=== PATIENT | female | born 1965 | race American Indian/Alaskan Native ===

== ENCOUNTER 2016-06-06 09:27 | Outpatient (CLI) | payer BC ==
--- NOTE | 2016-06-06 10:35 | Ultrasound Report ---
RIGHT DIGITAL DIAGNOSTIC MAMMOGRAM : 06/06/16 09:27:00 CLINICAL: Recalled for asymmetry. COMPARISON:05/02/16 screening FINDINGS: Spot compression MLO and CC views were performed and demonstrated persistent upper-outer focal asymmetry. Ultrasound of the right breast was performed and demonstrated a cluster of cysts at 10 o'clock 12 cm from the nipple measuring 6 x 3 x 5 mm. It correlates with the mammographic density. IMPRESSION: Benign cysts right breast. BI-RADS CATEGORY: 2 - - Benign RECOMMENDATION: Routine mammographic screening in one year. ACR BI-RADS MAMMOGRAPHIC CODES: 0 = Needs additional imaging evaluation; 1 = Negative; 2 = Benign; 3 = Probably benign; 4 = Suspicious; 5 = Malignant; 6 = Known biopsy-proven malignancy COMMENT: 1. Dense breast tissue, i.e., adenosis, fibrocystic changes, etc., may obscure an underlying neoplasm. 2. Approximately 10% of cancers are not detected with mammography. 3. A negative mammography report should not delay biopsy if a clinically suspicious mass is present. COMMENT: Patient follow-up letters are generated via our [employer] application.
== END 2016-06-06 09:28 | disposition home or self-care (01) ==
LOC: SPVWC 09:27
PROVIDERS: ATTEND Internal Medicine
DX: N60.01 Solitary cyst of right breast (principal); R92.8 Other abnormal and inconclusive findings on diagnostic imaging of breast
CPT/HCPCS: 76642; G0206

== ENCOUNTER 2016-10-09 08:40 | Emergency (ER) | payer BC, OTHER ==
[2016-10-09 09:09] VITALS: BP 126/82
[2016-10-09] MEDS ORDERED: MOTRIN PO ONE (09:20)
[2016-10-09] MEDS ORDERED: XYLOCAINE 1% 20 mL INFILTRATI ONE (09:20)
--- NOTE | 2016-10-09 09:23 | Emergency Department Report ---
ED Upper Extremity Inj HPI - General Chief Complaint: Extremity Injury, Upper Stated Complaint: Finger Lac Time Seen by Provider: 10/09/16 09:15 Source: patient Mode of arrival: Ambulatory Limitations: No Limitations - History of Present Illness MD Complaint: Injury to:: left, finger -: Sudden, This morning Other Extremity Injury: Fingers: Left (1 cm lack medial aspect second finger) Other Injuries: none Place: work - Related Data Allergies Allergy/AdvReac Type Severity Reaction Status Date / Time No Known Allergies Allergy Verified 10/09/16 09:49 ED Review of Systems ROS: Stated complaint: Finger Lac Other details as noted in HPI Constitutional: denies: chills, fever Eyes: denies: eye pain, eye discharge, vision change ENT: denies: ear pain, throat pain Respiratory: denies: cough, shortness of breath, wheezing Cardiovascular: denies: chest pain, palpitations Endocrine: no symptoms reported Gastrointestinal: denies: abdominal pain, nausea, diarrhea Genitourinary: denies: urgency, dysuria, discharge Musculoskeletal: denies: back pain, joint swelling, arthralgia Skin: other (left second finger laceration). denies: rash, lesions Neurological: denies: headache, weakness, paresthesias Psychiatric: denies: anxiety, depression Hematological/Lymphatic: denies: easy bleeding, easy bruising ED Past Medical Hx - Past Medical History Previous Medical History?: Yes Hx Hypertension: Yes Additional medical history: thyroid problems - Surgical History Past Surgical History?: Yes Additional Surgical History: small bowel obstruction with lysisi of adhesions, Hysterectomy, Left knee surgery - Social History Smoking Status: Never Smoker Substance Use Type: Alcohol, Prescribed ED Physical Exam - General Limitations: No Limitations General appearance: alert, in no apparent distress - Head Head exam: Present: atraumatic, normocephalic - Eye Eye exam: Present: normal appearance, PERRL, EOMI - ENT ENT exam: Present: mucous membranes moist - Neck Neck exam: Present: normal inspection - Respiratory Respiratory exam: Present: normal lung sounds bilaterally. Absent: respiratory distress, wheezes, rales, rhonchi, stridor - Cardiovascular Cardiovascular Exam: Present: regular rate. Absent: systolic murmur, diastolic murmur, rubs, gallop - GI/Abdominal GI/Abdominal exam: Present: soft, normal bowel sounds - Extremities Exam Extremities exam: Present: normal inspection - Expanded Upper Extremity Exam Left Hand Wrist exam: Present: other (left index finger laceration medial aspect neurovascular motor intact, brisk cap refill noted no deformity noted.) Hand L/R Front: 1 - Positive: laceration - Back Exam Back exam: Present: normal inspection - Neurological Exam Neurological exam: Present: alert, oriented X3 - Psychiatric Psychiatric exam: Present: normal affect, normal mood - Skin Skin exam: Present: warm, dry, intact, normal color. Absent: rash ED Course Vital Signs 10/09/16 09:05 Temperature 97.8 F Pulse Rate 97 H Respiratory 18 Rate Blood Pressure 126/82 O2 Sat by Pulse 98 Oximetry - Laceration /Wound Repair Left Medial Finger Wound's Depth, Shape: superficial Wound Explored: clean Betadine Prep?: Yes Anesthesia: 1% Lidocaine Volume Anesthetic (ccs): 6 Wound Repaired With: sutures Suture Size/Type: 4:0, proline Number of Sutures: 1 Layer Closure?: No Sterile Dressing Applied?: Yes Critical care attestation.: If time is entered above; I have spent that time in minutes in the direct care of this critically ill patient, excluding procedure time. ED Disposition Clinical Impression: Laceration of left index finger Disposition: DISCHARGED TO HOME OR SELFCARE Is pt being admited?: No Condition: Stable Instructions: Suture Care (ED) Referrals: PRIMARY CARE, [Primary Care Provider] - 3-5 Days Forms: Work/School Release Form(ED)
[2016-10-09] MEDS ORDERED: XYLOCAINE 1% MPF 5 mL INFILTRATI ONE ×2 (09:29→09:49)
[2016-10-09] MEDS ORDERED: XYLOCAINE 1% MPF 5 mL ONE (09:30)
[2016-10-09] MEDS ORDERED: XYLOCAINE 2% INFILTRATI ONE (09:35)
--- NOTE | 2016-10-09 10:17 | XRay Report ---
LEFT HAND RADIOGRAPHS INDICATION: Left hand index finger injury, slammed in a door. COMPARISON: None similar. FINDINGS: AP, lateral and oblique left hand radiographs demonstrate intact bones, joints and soft tissues. CONCLUSION: No acute radiographic abnormality. Thank you for the opportunity to participate in this patient's care.
== END 2016-10-09 10:33 | disposition home or self-care (01) ==
LOC: ED 08:40
DX: S61.211A Laceration without foreign body of left index finger without damage to nail, initial encounter (principal); I10 Essential (primary) hypertension; Z90.710 Acquired absence of both cervix and uterus; X58.XXXA Exposure to other specified factors, initial encounter; Y93.89 Activity, other specified; Y92.89 Other specified places as the place of occurrence of the external cause; Y99.8 Other external cause status

== ENCOUNTER 2017-05-03 08:02 | Outpatient (CLI) | payer BC ==
--- NOTE | 2017-05-04 08:16 | Mammography Report ---
BILATERAL DIGITAL SCREENING MAMMOGRAM with CAD: 05/03/17 08:02:00 CLINICAL: Routine screening. COMPARISON:06/06/16, 05/02/16 and 12/30/10 FINDINGS: The breasts are mostly fatty with bilateral upper outer residual fibroglandular densities. New right upper outer parenchymal asymmetries require additional evaluation.No architectural distortion or suspicious calcifications.The left breast is negative. IMPRESSION: New right asymmetries requiring further workup. BI-RADS CATEGORY: 0 -- Additional Imaging Evaluation Required RECOMMENDATION: Recall for right mediolateral , spot magnification CC and MLO views and right breast ultrasound if needed. ACR BI-RADS MAMMOGRAPHIC CODES: 0 = Needs additional imaging evaluation; 1 = Negative; 2 = Benign; 3 = Probably benign; 4 = Suspicious; 5 = Malignant; 6 = Known biopsy-proven malignancy COMMENT: 1. Dense breast tissue, i.e., adenosis, fibrocystic changes, etc., may obscure an underlying neoplasm. 2. Approximately 10% of cancers are not detected with mammography. 3. A negative mammography report should not delay biopsy if a clinically suspicious mass is present. COMMENT: Patient follow-up letters are generated via our [employer] application.
== END 2017-05-03 08:03 | disposition home or self-care (01) ==
LOC: SPVWC 08:02
PROVIDERS: ATTEND Internal Medicine
DX: Z12.31 Encounter for screening mammogram for malignant neoplasm of breast (principal); I10 Essential (primary) hypertension
CPT/HCPCS: 77067; G0202

== ENCOUNTER 2017-05-04 11:25 | Day surgery (SDC) | payer BC ==
[2017-05-04] MEDS ORDERED: NACL 0.9% 1000 ML 1,000 ML ONE (11:59)
[2017-05-04] MEDS ORDERED: WATER FOR IRRIG STERILE IR ONE (12:01)
[2017-05-04] MEDS ORDERED: NACL 0.9% 1000 ML 1,000 ML IV SCH (12:30)
--- NOTE | 2017-05-04 12:42 | Anesthesia Day of Surgery ---
Anesthesia Day of Surgery - Day of Surgery Patient Examined: Yes Patient H&P Reviewed: Yes Patient is NPO: Yes
--- NOTE | 2017-05-04 12:43 | Anesthesia Consultation ---
Anesthesia Consult and Med Hx Date of service: 05/04/17 - Airway Anesthetic Teeth Evaluation: Good ROM Head & Neck: Adequate Mental/Hyoid Distance: Adequate Mallampati Class: Class I Intubation Access Assessment: Good - Pulmonary Exam CTA: Yes - Cardiac Exam Cardiac Exam: RRR - Pre-Operative Health Status ASA Pre-Surgery Classification: ASA3 Proposed Anesthetic Plan: MAC - Pulmonary Hx Smoking: No Hx Sleep Apnea: No - Cardiovascular System Hx Hypertension: Yes - Central Nervous System Hx Psychiatric Problems: No - Endocrine Hx Non-Insulin Dependent Diabetes: Yes Hx Hypothyroidism: Yes - Hematic Hx Anemia: Yes (RESOLVED, ONLY DURING ) - Other Systems Hx Cancer: No
[2017-05-04] MEDS ORDERED: DIPRIVAN 10 MG/ML IV ONE ×2 (13:54)
[2017-05-04 15:26] VITALS: BP 132/65
--- NOTE | 2017-05-04 18:00 | Post Anesthesia Evaluation ---
- Post Anesthesia Evaluation Patient Participated: Yes Airway Patent: Yes Stable Respiratory Function: Yes Nausea/Vomiting: No Temp > 96.8F: Yes Pain Manageable: Yes Adequeate Hydration: Yes Anesthesia Complications: No Block Receding Appropriately: Not Applicable Patient on Ventilator: No
--- NOTE | 2017-05-04 20:52 | Operative Report ---
PRIMARY CARE: Luz Elena Ortiz DO PROCEDURE: Colonoscopy. INDICATION: Colon cancer screening. MEDICATIONS: Propofol per [employer]. COMPLICATIONS: None. DESCRIPTION OF PROCEDURE: The patient brought to procedure suite. The patient had the procedure discussed with her at length. All risks, complications, and benefits discussed after which the patient signed for the procedure performed. The patient was placed in left lateral decubitus position. Rectal exam performed prior to insertion of the scope. After adequate sedation medication as above, scope was inserted in the rectum and brought to the level of the cecum. Ileocecal valve, appendiceal orifice and cecal strap adequately visualized. Colonoscope was then removed and mucosa of colon visualized. Prep quality for this procedure was fair. The patient's vital signs remained stable throughout the procedure. FINDINGS: There were no mass lesions or polyps noted during this procedure. There was noted to be severe melanosis coli throughout the colon. There were few small sigmoid diverticula noted. Retroflexion view performed in the rectum showed small to medium internal hemorrhoids. The patient tolerated the procedure well. No complications during the procedure. IMPRESSION: 1. Melanosis coli. 2. Diverticulosis. 3. Internal hemorrhoids. RECOMMENDATIONS: 1. High fiber diet. 2. Continue current medications. 3. Repeat colonoscopy screening in 10 years. JOB# [id number] CAB/NTS
== END 2017-05-04 11:26 | disposition home or self-care (01) ==
LOC: GIO 11:25
PROVIDERS: ATTEND Internal Medicine Gastroenterology
DX: Z12.11 Encounter for screening for malignant neoplasm of colon (principal); K63.89 Other specified diseases of intestine; K57.30 Diverticulosis of large intestine without perforation or abscess without bleeding; K64.8 Other hemorrhoids; E03.9 Hypothyroidism, unspecified; I10 Essential (primary) hypertension; Z79.899 Other long term (current) drug therapy
CPT/HCPCS: 45378; 82962; J2704; J7030

== ENCOUNTER 2017-06-15 09:30 | Outpatient (CLI) | payer BC ==
--- NOTE | 2017-06-15 10:15 | Mammography Report ---
RIGHT DIGITAL DIAGNOSTIC MAMMOGRAM : 06/15/17 09:30:00 CLINICAL: Recalled for asymmetry. COMPARISON:05/03/17 screening FINDINGS: Lateralmedial and spot magnification MLO the CC views were performed. Satisfactory effacement of upper outer parenchymal asymmetry on the spot views and negative lateral view. IMPRESSION: Negative Mammogram. BI-RADS CATEGORY: 1 -- Negative RECOMMENDATION: Routine mammographic screening in one year. ACR BI-RADS MAMMOGRAPHIC CODES: 0 = Needs additional imaging evaluation; 1 = Negative; 2 = Benign; 3 = Probably benign; 4 = Suspicious; 5 = Malignant; 6 = Known biopsy-proven malignancy COMMENT: 1. Dense breast tissue, i.e., adenosis, fibrocystic changes, etc., may obscure an underlying neoplasm. 2. Approximately 10% of cancers are not detected with mammography. 3. A negative mammography report should not delay biopsy if a clinically suspicious mass is present. COMMENT: Patient follow-up letters are generated via our [employer] application.
== END 2017-06-15 09:31 | disposition home or self-care (01) ==
LOC: SPVWC 09:30
PROVIDERS: ATTEND Internal Medicine
DX: R92.8 Other abnormal and inconclusive findings on diagnostic imaging of breast (principal)

== ENCOUNTER 2017-09-17 11:00 | Outpatient (CLI) | payer BC | END 2017-09-17 11:01 | disposition home or self-care (01) | LOC: SLR 11:00 | PROVIDERS: ATTEND Otolaryngology | DX: G47.30 Sleep apnea, unspecified (principal) | CPT/HCPCS: 95810 ==

== ENCOUNTER 2018-02-24 17:06 | Emergency (ER) | payer BC ==
--- NOTE | 2018-02-24 17:56 | Emergency Department Report ---
ED Lower Extremity HPI - General Chief Complaint: Extremity Injury, Lower Stated Complaint: LEFT KNEE PAIN Time Seen by Provider: 02/24/18 17:55 Source: patient Mode of arrival: Ambulatory Limitations: No Limitations - History of Present Illness Initial Comments: Patient reports left knee pain with a "popping sensation" that gave out this morning - Related Data Home Medications Medication Instructions Recorded Confirmed Last Taken Thyroid,Pork [Nature-Throid] 90 mg PO QDAY 05/04/17 05/04/17 05/03/17 14:00 Triamterene/Hydrochlorothiazid 1 each PO DAILY 05/04/17 05/04/17 05/03/17 14:00 [Triamterene-Hctz 37.5-25 mg Cp] amLODIPine [Norvasc] 1 tab PO DAILY 05/04/17 05/04/17 05/03/17 14:00 Previous Rx's Medication Instructions Recorded Last Taken Type Acetaminophen [Tylenol Extra 1 gm PO Q6H #30 tablet 02/24/18 Unknown Rx Strength] Allergies Allergy/AdvReac Type Severity Reaction Status Date / Time adhesive tape Allergy Rash Verified 02/24/18 17:14 ED Review of Systems ROS: Stated complaint: LEFT KNEE PAIN Other details as noted in HPI Constitutional: denies: chills, fever Eyes: denies: eye pain, eye discharge, vision change ENT: denies: ear pain, throat pain Respiratory: denies: cough, shortness of breath, wheezing Cardiovascular: denies: chest pain, palpitations Endocrine: no symptoms reported Gastrointestinal: denies: abdominal pain, nausea, diarrhea Genitourinary: denies: urgency, dysuria, discharge Musculoskeletal: arthralgia (left knee). denies: back pain, joint swelling Skin: denies: rash, lesions Neurological: denies: headache, weakness, paresthesias Psychiatric: denies: anxiety, depression Hematological/Lymphatic: denies: easy bleeding, easy bruising ED Past Medical Hx - Past Medical History Hx Hypertension: Yes Hx Diabetes: Yes (type II, no meds 2006) Additional medical history: thyroid problems, Arthritis - Surgical History Additional Surgical History: small bowel obstruction with lysisi of adhesions, Hysterectomy, Left knee surgery - Social History Smoking Status: Never Smoker Substance Use Type: Alcohol - Medications Home Medications: Home Medications Medication Instructions Recorded Confirmed Last Taken Type Thyroid,Pork [Nature-Throid] 90 mg PO QDAY 05/04/17 05/04/17 05/03/17 14:00 History Triamterene/Hydrochlorothiazid 1 each PO DAILY 05/04/17 05/04/17 05/03/17 14:00 History [Triamterene-Hctz 37.5-25 mg Cp] amLODIPine [Norvasc] 1 tab PO DAILY 05/04/17 05/04/17 05/03/17 14:00 History Acetaminophen [Tylenol Extra 1 gm PO Q6H #30 tablet 02/24/18 Unknown Rx Strength] ED Physical Exam - General Limitations: No Limitations General appearance: alert, in no apparent distress - Neck Neck exam: Present: normal inspection, full ROM. Absent: tenderness, meningismus, lymphadenopathy, thyromegaly - Respiratory Respiratory exam: Present: normal lung sounds bilaterally. Absent: respiratory distress, wheezes, rales, rhonchi, stridor, chest wall tenderness, accessory muscle use, decreased breath sounds, prolonged expiratory - Cardiovascular Cardiovascular Exam: Present: regular rate, normal rhythm, normal heart sounds. Absent: systolic murmur, diastolic murmur, rubs, gallop - Extremities Exam Extremities exam: Present: normal inspection, full ROM, normal capillary refill. Absent: tenderness, pedal edema, joint swelling - Expanded Lower Extremity Exam Left Hip exam: Present: normal inspection, full ROM, pelvic stability Upper Leg exam: Present: normal inspection, full ROM Knee exam: Present: full ROM, tenderness (left medial), swelling, full knee extension. Absent: abrasion, laceration, ecchymosis, deformity, crepidus, dislocation, erythema, posterior draw sign, pain/laxity with valgus, pain/ laxity with varus Lower Leg exam: Present: normal inspection, full ROM Ankle exam: Present: normal inspection, full ROM Foot/Toe exam: Present: normal inspection, full ROM Neuro vascular tendon exam: Present: no vascular compromise, significant pain with passive ROM of distal joint. Absent: pulse deficit, abnormal cap refill, motor deficit, sensory deficit, tendon deficit, extremity cold to touch, pallor , abnormal 2-point discrimination, decreased fine/light touch, foot drop, peroneal nerve deficit Gait: Positive: observed and limited by pain - Back Exam Back exam: Present: normal inspection, full ROM. Absent: tenderness, CVA tenderness (R), CVA tenderness (L) - Neurological Exam Neurological exam: Present: alert, oriented X3, CN II-XII intact, normal gait, reflexes normal. Absent: motor sensory deficit - Psychiatric Psychiatric exam: Present: normal affect, normal mood - Skin Skin exam: Present: warm, dry, intact, normal color. Absent: rash ED Course Vital Signs 02/24/18 02/24/18 17:15 20:12 Temperature 98.3 F 98.1 F Pulse Rate 83 86 Respiratory 18 18 Rate Blood Pressure 128/78 Blood Pressure 127/90 [Left] O2 Sat by Pulse 98 99 Oximetry ED Lower Extremity MDM - Lab Data Vital Signs 02/24/18 02/24/18 17:15 20:12 Temperature 98.3 F 98.1 F Pulse Rate 83 86 Respiratory 18 18 Rate Blood Pressure 128/78 Blood Pressure 127/90 [Left] O2 Sat by Pulse 98 99 Oximetry - Radiology Data Radiology results: image reviewed EXAM: XR KNEE 3V LT HISTORY: left knee pain/pop sensation TECHNIQUE: Three views of the left knee PRIORS: None. FINDINGS: The bones are normally aligned and mineralized. There is prominent osteophyte formation of the patellofemoral and medial joints. There is mild narrowing of the medial joint and moderate narrowing of the patellofemoral joint. There is beaking of the tibial spines. There is no evidence of acute fracture. The soft tissues are unremarkable. IMPRESSION: No evidence of acute fracture or subluxation. Osteoarthrosis of the medial and patellofemoral joints. - Medical Decision Making During the course of ED, radiology studies were ordered. The imaging studies revealed No evidence of acute fracture or subluxation. Osteoarthrosis of the medial and patellofemoral joints. She was sent home with prescription for Tylenol ES, instructed to follow up with the selective referral given at discharge. She verbalized understanding - Differential Diagnosis Left Knee Pain, Osteoarthritis Critical care attestation.: If time is entered above; I have spent that time in minutes in the direct care of this critically ill patient, excluding procedure time. ED Disposition Clinical Impression: Left knee pain Qualifiers: Chronicity: acute Qualified Code(s): M25.562 - Pain in left knee Osteoarthritis of left knee Qualifiers: Osteoarthritis type: unspecified Qualified Code(s): M17.12 - Unilateral primary osteoarthritis, left knee Disposition: - TO HOME OR SELFCARE Is pt being admited?: No Does the pt Need Aspirin: No Condition: Stable Instructions: Arthralgia (ED) Additional Instructions: Take medication as directed. Follow up with the selective referral given at discharge Prescriptions: Acetaminophen [Tylenol Extra Strength] 1 gm PO Q6H #30 tablet Referrals: NICA SULTANA MD [Staff Physician] - 3-5 Days Forms: Work/School Release Form(ED) Time of Disposition: 19:48
--- NOTE | 2018-02-24 19:42 | XRay Report ---
FINAL REPORT EXAM: XR KNEE 3V LT HISTORY: left knee pain/pop sensation TECHNIQUE: Three views of the left knee PRIORS: None. FINDINGS: The bones are normally aligned and mineralized. There is prominent osteophyte formation of the patellofemoral and medial joints. There is mild narrowing of the medial joint and moderate narrowing of the patellofemoral joint. There is beaking of the tibial spines. There is no evidence of acute fracture. The soft tissues are unremarkable. IMPRESSION: No evidence of acute fracture or subluxation. Osteoarthrosis of the medial and patellofemoral joints.
[2018-02-24 20:13] VITALS: BP 127/90
== END 2018-02-24 20:12 | disposition home or self-care (01) ==
LOC: ED 17:06
DX: M17.12 Unilateral primary osteoarthritis, left knee (principal); I10 Essential (primary) hypertension; E11.9 Type 2 diabetes mellitus without complications; Z90.710 Acquired absence of both cervix and uterus; Z91.048 Other nonmedicinal substance allergy status
CPT/HCPCS: 99283

== ENCOUNTER 2018-08-07 06:24 | Outpatient (CLI) | payer BC ==
[2018-08-07 06:46] LABS: Basophils % (Auto) 0.3 % (0.0-1.8); Eosinophils # (Auto) 0.1 K/mm3 (0.0-0.4); Eosinophils % (Auto) 1.2 % (0.0-4.3); Hematocrit 42.3 % (30.3-42.9); Hemoglobin 13.9 gm/dl (10.1-14.3); Lymphocytes # (Auto) 2.5 K/mm3 (1.2-5.4); Lymphocytes % (Auto) 38.5 % (13.4-35.0); Mean Corpuscular HGB Conc 33 % (30-34); Mean Corpuscular Volume 84 fl (79-97); Monocytes # (Auto) 0.4 K/mm3 (0.0-0.8); Monocytes % (Auto) 6.6 % (0.0-7.3); Platelet Count 307 K/mm3 (140-440); Red Blood Count 5.06 M/mm3 (3.65-5.03); Red Cell Distribution Width 13.5 % (13.2-15.2)
[2018-08-07 07:22] LABS: Alanine Aminotransferase 20 units/L (7-56); Albumin 4.5 g/dL (3.9-5); BUN/Creatinine Ratio 39; Blood Urea Nitrogen 31 mg/dL (7-17); Calcium 9.7 mg/dL (8.4-10.2); Chol/HDL Ratio 2.96 %; HDL Cholesterol 62 mg/dL (40-59); Hemolysis Index 2; LDL Cholesterol,Direct 129 mg/dL (50-130)
== END 2018-08-07 06:25 | disposition home or self-care (01) ==
LOC: LAB 06:24
PROVIDERS: ATTEND Specialist
DX: Z01.812 Encounter for preprocedural laboratory examination (principal); E66.01 Morbid (severe) obesity due to excess calories; E11.9 Type 2 diabetes mellitus without complications; I10 Essential (primary) hypertension; E03.9 Hypothyroidism, unspecified; Z90.710 Acquired absence of both cervix and uterus; Z90.721 Acquired absence of ovaries, unilateral
CPT/HCPCS: 36415; 80053; 80061; 83036; 84443; 85025

== ENCOUNTER 2018-08-13 06:30 | Day surgery (SDC) | payer BC ==
[2018-08-13] MEDS ORDERED: VERSED ONE (09:41)
[2018-08-13] MEDS ORDERED: DIPRIVAN 10 MG/ML IV ONE (09:41)
[2018-08-13] MEDS ORDERED: NACL 0.9% 1000 ML 1,000 ML IV SCH (10:00)
[2018-08-13] MEDS ORDERED: WATER FOR IRRIG STERILE IR ONE (10:55)
[2018-08-13 11:45] VITALS: BP 105/55
--- NOTE | 2018-08-13 12:36 | Operative Report ---
PREOPERATIVE DIAGNOSIS: Morbid obesity. POSTOPERATIVE DIAGNOSIS: Small hiatal hernia, type 1. PROCEDURE: EGD. SPECIMENS: None. BLEEDING: None. COMPLICATIONS: None. INDICATIONS FOR PROCEDURE: The patient is a 53-year-old female with history of morbid obesity. She is here for preoperative EGD. Informed consent had been obtained. DESCRIPTION OF PROCEDURE: The patient was brought to the operating suite where she was placed in the left lateral decubitus position underwent MAC anesthesia. A bite block was placed and a time-out was called. A standard adult gastroscope was inserted into the oropharynx, down the esophagus, into the first portion of the duodenum. On retroflexion view, she was noted to have a small type 1 sliding hiatal hernia. There were no other abnormalities. With this, the air was desufflated. The gastroscope was removed. The patient tolerated the procedure well and was transferred to the PACU in stable condition. JOB# [id number] KELSEY/SHANELL
== END 2018-08-13 06:31 | disposition home or self-care (01) ==
LOC: GIO 06:30
PROVIDERS: ATTEND Specialist
DX: K30 Functional dyspepsia (principal); E66.01 Morbid (severe) obesity due to excess calories; K44.9 Diaphragmatic hernia without obstruction or gangrene; I10 Essential (primary) hypertension; E11.9 Type 2 diabetes mellitus without complications; E03.9 Hypothyroidism, unspecified; Z98.890 Other specified postprocedural states; Z90.710 Acquired absence of both cervix and uterus; Z90.721 Acquired absence of ovaries, unilateral; Z68.39 Body mass index [BMI] 39.0-39.9, adult; Z79.899 Other long term (current) drug therapy; Z88.8 Allergy status to other drugs, medicaments and biological substances; Z86.2 Personal history of diseases of the blood and blood-forming organs and certain disorders involving the immune mechanism
CPT/HCPCS: 43235; 82962; J2250; J2704; J7030

== ENCOUNTER 2018-08-20 10:58 | Observation (INO) | payer BC ==
--- NOTE | 2018-08-19 11:50 | Anesthesia Consultation ---
Anesthesia Consult and Med Hx Date of service: 08/20/18 - Airway Anesthetic Teeth Evaluation: Good ROM Head & Neck: Adequate Mental/Hyoid Distance: Adequate Mallampati Class: Class I Intubation Access Assessment: Probably Good - Pulmonary Exam CTA: Yes - Cardiac Exam Cardiac Exam: RRR - Pre-Operative Health Status ASA Pre-Surgery Classification: ASA3 Proposed Anesthetic Plan: General - Pulmonary Hx Smoking: No Hx Sleep Apnea: No (SLEEP STUDY NEG) - Cardiovascular System Hx Hypertension: Yes (2006) Hx Heart Attack/AMI: No Hx Cardia Arrhythmia: No Hx Peripheral Vascular Disease: No - Central Nervous System Hx Neuromuscular Disorder: No Hx Back Pain: Yes (LOWER) Hx Psychiatric Problems: No - Gastrointestinal Hx Gastroesophageal Reflux Disease: No (patient with small hiatal hernia) - Endocrine Hx Renal Disease: No Hx Liver Disease: No Hx Non-Insulin Dependent Diabetes: Yes (diet-controlled ) Hx Hypothyroidism: Yes - Hematic Hx Anemia: Yes (RESOLVED, ONLY DURING ) - Other Systems Hx Alcohol Use: Yes Hx Substance Use: No Hx Cancer: No Hx Obesity: Yes - Additional Comments Anesthesia Medical History Comments: No GAC, No FHAC; advised to take thyroid and antihypertensive (amlodipine) as scheduled the morning of surgery.
[~2018-08-20 10:58] MED LIST: ANCEF/STERILE WATER 2 GM/20 ML 2 GM/20 ML SYRINGE IV NR; FLAGYL 500 MG/100 ML 500 MG/100 ML BAG IV NR; LACTATED RINGERS 1,000 ML IV SCH; LOVENOX SUB-Q NR; TRANSDERM-SCOP TD SCH
[2018-08-20] MEDS ORDERED: LOVENOX SUB-Q NR (13:00)
[2018-08-20] MEDS ORDERED: FLAGYL 500 MG/100 ML 500 MG/100 ML BAG IV NR (13:00)
[2018-08-20] MEDS ORDERED: ANCEF/STERILE WATER 2 GM/20 ML 2 GM/20 ML SYRINGE IV NR (13:00)
--- NOTE | 2018-08-20 13:28 | Anesthesia Day of Surgery ---
Anesthesia Day of Surgery - Day of Surgery Patient Examined: Yes Patient H&P Reviewed: Yes Patient is NPO: Yes
[2018-08-20] MEDS ORDERED: SUBLIMAZE ONE (15:08)
[2018-08-20] MEDS ORDERED: DIPRIVAN 10 MG/ML IV ONE (15:08)
[2018-08-20] MEDS ORDERED: VERSED ONE (15:13)
[2018-08-20] MEDS ORDERED: XYLOCAINE 1% 20 mL INFILTRATI ONE (15:43)
[2018-08-20] MEDS ORDERED: MARCAINE-EPI 0.5%-1:200,000 INFILTRATI ONE (15:43)
[2018-08-20] MEDS ORDERED: DECADRON ONE (16:31)
[2018-08-20] MEDS ORDERED: TORADOL ONE (16:31)
[2018-08-20] MEDS ORDERED: ROBINUL ONE (16:31)
[2018-08-20] MEDS ORDERED: ZEMURON IV ONE (16:31)
[2018-08-20] MEDS ORDERED: NEO SYNEPHRINE/NS Syringe(OR USE) IV ONE (16:31)
[2018-08-20] MEDS ORDERED: ZOFRAN ONE (16:31)
[2018-08-20] MEDS ORDERED: QUELICIN ONE (16:31)
[2018-08-20] MEDS ORDERED: XYLOCAINE MPF 2% ONE (16:31)
[2018-08-20] MEDS ORDERED: APRESOLINE IV PRN (16:32)
--- NOTE | 2018-08-20 16:51 | Operative Report ---
PREOPERATIVE DIAGNOSIS: Morbid obesity. POSTOPERATIVE DIAGNOSIS: Morbid obesity. OPERATION: 1. Laparoscopic sleeve gastrectomy. 2. Laparoscopic hiatal hernia repair. ANESTHESIA: General endotracheal anesthesia. COMPLICATIONS: None. BLEEDING: Minimal. SPECIMENS: Gastric remnant. INDICATIONS: The patient is a 53-year-old female with a history of morbid obesity, refractory to medical management. She is here for her weight loss surgery. She underwent preoperative bariatric workup. The risks, complications and alternatives were explained to the patient and informed consent was obtained. DESCRIPTION OF PROCEDURE: The patient was brought to the operating suite where she was placed in the supine position and underwent general endotracheal intubation. She received preoperative antibiotics and DVT prophylaxis. She was prepped and draped in the usual sterile fashion and then a timeout was called to ensure proper patient, indication and operation. Local was injected around the umbilical region and a small stab incision was made at the base of the umbilicus with insertion of a Veress needle. Insufflation pressures were achieved to 18 mmHg and the incision was widened and exchanged for a 15 mm trocar. On intra-abdominal view there was no injury. There was a minor injury to the falciform ligament. A 5 mm ports were placed in the right lateral subxiphoid and left lateral quadrants. The ligament was cauterized with LigaSure device for hemostasis. After this, liver retractor was placed and the patient was repositioned in steep reverse Trendelenburg. She had a small hiatal hernia that was noted. A hiatal dissection was then performed to expose the right and left blake. The angle of His was dissected free and then the greater curvature of the stomach was divided from the gastrocolic ligament utilizing LigaSure device fully mobilizing the stomach and continued anterograde for about 6 cm from the duodenum. Anesthesia then placed a 40-Citizen Of [place] bougie for calibration and a sleeve gastrectomy was then performed utilizing several staple loads. Insufflation pressures were decreased and the staple line was cauterized after each fire for hemostasis. After this, an anterior cruroplasty was then performed with 0 Surgidac suture in a U-stitch fashion. A 250 mL of saline was then left in the left and right upper quadrant and the gastric remnant was removed from the umbilical port site. The fascia was closed with #1 PDS in a [id number] fashion and Dave-Aaliyah fashion. Then, the air was desufflated. The ports were removed. Additional local was injected to all the wounds and the wounds were closed with 4-0 Monocryl. Sterile bandages were placed over top. The patient tolerated the procedure well, was then transferred to the PACU in stable condition. Counts were correct. JOB# [id number] MCL/NTS MTDD
[2018-08-20] MEDS: SUBLIMAZE IV PRN ×2 (16:56→17:10)
[2018-08-20] MEDS ORDERED: MYLICON ONE (17:31)
[2018-08-20] MEDS: MYLICON PO PRN ×2 (17:33→21:34)
[2018-08-20] MEDS: NORCO PO PRN (17:36)
[2018-08-20] MEDS: REGLAN IV PRN (17:39)
[2018-08-20] MEDS: DILAUDID IV PRN ×2 (19:18→23:08)
[2018-08-20] MEDS: TORADOL IV SCH ×2 (19:44→23:23)
[2018-08-20] MEDS: ZOFRAN IV PRN (23:08)
[2018-08-20] MEDS: LACTATED RINGERS 1,000 ML IV SCH (23:12)
[2018-08-21] MEDS: DILAUDID IV PRN ×4 (02:53→14:43)
[2018-08-21] MEDS: REGLAN IV PRN (02:53)
[2018-08-21] MEDS: MYLICON PO PRN (03:00)
[2018-08-21 05:30] LABS: Basophils % (Auto) 0.1 % (0.0-1.8); Hematocrit 34.4 % (30.3-42.9); Hemoglobin 11.6 gm/dl (10.1-14.3); Lymphocytes # (Auto) 0.5 K/mm3 (1.2-5.4); Lymphocytes % (Auto) 7.2 % (13.4-35.0); Mean Corpuscular HGB Conc 34 % (30-34); Mean Corpuscular Volume 83 fl (79-97); Monocytes # (Auto) 0.4 K/mm3 (0.0-0.8); Monocytes % (Auto) 5.2 % (0.0-7.3); Platelet Count 246 K/mm3 (140-440); Red Blood Count 4.14 M/mm3 (3.65-5.03); Red Cell Distribution Width 13.4 % (13.2-15.2)
[2018-08-21] MEDS: LACTATED RINGERS 1,000 ML IV SCH (05:33)
[2018-08-21] MEDS: TORADOL IV SCH ×2 (05:34→11:32)
[2018-08-21 05:55] LABS: Alanine Aminotransferase 17 units/L (7-56); Albumin 3.6 g/dL (3.9-5); BUN/Creatinine Ratio 22; Blood Urea Nitrogen 13 mg/dL (7-17); Calcium 8.8 mg/dL (8.4-10.2); Hemolysis Index 1
--- NOTE | 2018-08-21 07:50 | Discharge Summary ---
Providers - Providers Date of Admission: 08/20/18 16:33 Date of discharge: 08/21/18 Attending physician: VU FALL Primary care physician: RANJITH MACK Hospitalization Reason for admission: postop monitoring Condition: Good Procedures: 08/20/18: Laparoscopic sleeve gastrectomy Hospital course: 53F admitted after her operation for routine postop care. No acute issues. Tolerated a CLD, pain tolerable, ambulated. DC home in stable condition. Disposition: DC-01 TO HOME OR SELFCARE Core Measure Documentation - Palliative Care Palliative Care/ Comfort Measures: Not Applicable - Core Measures Any of the following diagnoses?: none - VTE Discharge Requirements Deep Vein Thrombosis/Pulmonary Embolism Present on Admission: No - Acute TX Discharge Requirements Aspirin at discharge: No Reason for no aspirin on DC: Surgical contraindication - Heart Failure Discharge Requirements BENITO/ARB for LVSD if EF <40%: Not Applicable - Stroke Discharge Requirements Statin for LDL = or >70 mg/dl on DC: Not Applicable Exam - Physical Exam Narrative exam: Gen: AAO, NAD Heart: RRR Lungs: CTAB, no wheezes, no rales Abd: Obese, soft, NT, ND. Bandages c/d/i. Ext: No LE edema. - Constitutional Vitals: Temp Pulse Resp BP Pulse Ox 97.9 F 53 L 18 106/58 97 08/21/18 07:10 08/21/18 07:10 08/21/18 07:10 08/21/18 07:10 08/21/18 07:10 Plan Diet: clear liquids Wound: keep clean and dry Special Instructions: no heavy lifting Additional Instructions: Tobin Fall as scheduled Follow up with: RANJITH MACK DO [Primary Care Provider] - 7 Days
[2018-08-21] MEDS: ZOFRAN IV PRN (08:23)
[2018-08-21] MEDS ORDERED: LOVENOX SUB-Q SCH (10:00)
[2018-08-21] MEDS ORDERED: MAXZIDE-25 PO SCH (10:00)
[2018-08-21] MEDS ORDERED: NORVASC PO SCH (10:00)
[2018-08-21] MEDS ORDERED: BENADRYL IV ONE (11:30)
[2018-08-21] MEDS: NORCO PO PRN (11:34)
[2018-08-21 11:45] VITALS: BP 95/53
== END 2018-08-21 15:15 | disposition home or self-care (01) ==
LOC: OR 10:58 → 3B-SURG 16:33
PROVIDERS: ADMIT Surgery; ATTEND Specialist
DX: E66.01 Morbid (severe) obesity due to excess calories (principal); I10 Essential (primary) hypertension; E11.9 Type 2 diabetes mellitus without complications; E03.9 Hypothyroidism, unspecified; R06.02 Shortness of breath; K30 Functional dyspepsia; K44.9 Diaphragmatic hernia without obstruction or gangrene; Z90.711 Acquired absence of uterus with remaining cervical stump; Z98.890 Other specified postprocedural states; Z91.048 Other nonmedicinal substance allergy status
CPT/HCPCS: 36415; 43281; 43775; 80053; 82962; 85025; 88307; 93005; 93010; 94760; 96372; 96374; 96375; 96376; G0378; J0330; J0690; J1100; J1170; J1200; J1650; J1885; J2250; J2370; J2405; J2704; J2765; J3010; J7120

== ENCOUNTER 2018-11-08 13:37 | Outpatient (CLI) | payer BC ==
--- NOTE | 2018-11-08 14:13 | Mammography Report ---
DIGITAL SCREENING MAMMOGRAM WITH CAD INDICATION: Routine screening mammography. TECHNIQUE: Digital bilateral 2D mammography was obtained in the craniocaudal and mediolateral obliq ue projections. This examination was interpreted with the benefit of Computer-Aided Detection analysi s. COMPARISON: 05/03/2017 FINDINGS: Breast Density: There are scattered areas of fibroglandular density. There is no evidence of dominant mass, suspicious calcifications or architectural distortion in eith er breast. IMPRESSION: BI-RADS Category 1: Negative. No mammographic evidence of malignancy. Recommend routine screening m ammography in one year. A "normal" or negative report should not discourage follow up or biopsy of a clinically significant f inding. A written summary of these findings will be mailed to the patient. The patient will be entered into a mammography reporting system which will generate a reminder letter for the patient's next appointmen t at the appropriate interval. The [employer] recommends yearly mammograms starting at age 40 and continuing as l ninoska as a woman is in good health. Breast MRI is recommended for women with an approximate 20-25% or greater lifetime risk of breast cancer, including women with a strong family history of breast or ova ann cancer or who have been treated for Hodgkin's disease. Signer Name: Craig Rao MD Signed: 11/08/2018 2:09 PM Workstation Name: [id number]
== END 2018-11-08 13:38 | disposition home or self-care (01) ==
LOC: SPVWC 13:37
PROVIDERS: ATTEND Internal Medicine
DX: Z12.31 Encounter for screening mammogram for malignant neoplasm of breast (principal); I10 Essential (primary) hypertension; K21.9 Gastro-esophageal reflux disease without esophagitis; E11.9 Type 2 diabetes mellitus without complications; E03.9 Hypothyroidism, unspecified; Z90.710 Acquired absence of both cervix and uterus
CPT/HCPCS: 77067

== ENCOUNTER 2019-01-07 21:10 | Emergency (ER) | payer BC ==
--- NOTE | 2019-01-07 21:27 | Event Note ---
ED Screening Note Date of service: 01/07/19 Time: 21:25 ED Screening Note: 53 y o f presenst s/p upper back pain s/p fall on sunday states its not getting beeter some pain with inhalation no bruising This initial assessment/diagnostic orders/clinical plan/treatment(s) is/are subject to change based on patients health status, clinical progression and re- assessment by fellow clinical providers in the ED. Further treatment and workup at subsequent clinical providers discretion. Patient/guardian urged not to elope from the ED as their condition may be serious if not clinically assessed and managed. Initial orders include: rib detail
[2019-01-07 21:31] VITALS: BP 160/88
--- NOTE | 2019-01-07 23:01 | XRay Report ---
BILATERAL RIBS 4 VIEWS INDICATION / CLINICAL INFORMATION: pain. COMPARISON: None available. FINDINGS: RIBS: No acute, displaced fracture or other acute abnormality. LUNGS: No acute findings. No pneumothorax. A stapled bowel anastomosis is seen in the left upper quadrant. Signer Name: Jose Negrete MD Signed: 01/07/2019 10:57 PM Workstation Name: [id number]
[2019-01-08] MEDS ORDERED: TORADOL IM ONE (00:14)
[2019-01-08] MEDS ORDERED: TYLENOL PO ONE (00:14)
--- NOTE | 2019-01-08 00:19 | Emergency Department Report ---
ED Back Pain/Injury HPI - General Chief Complaint: Fall Stated Complaint: L FLANK PAIN FROM FALL Time Seen by Provider: 01/07/19 21:24 Source: patient Limitations: No Limitations - History of Present Illness Initial Comments: Patient is a 53-year-old -[place] female with no past medical history who presents to the ED with complaint of acute onset persistent severe left lateral chest wall and rib cage, and mid posterior thoracic pain after she slipped and fell down the stairs and let them come back 4 days ago. Patient states that she has been taking ibuprofen as needed for pain but states that in the last 2 days the pain has worsened. Patient denies dyspnea, chest pain, shortness of breath, dizziness, neck pain, syncope, abdominal pain, nausea, vomiting, numbness and tingling of upper and lower extremities bilaterally or loss of consciousness, head or neck injuries and change in vision. MD Complaint: back pain, fall, other (left lateral chest wall and rib cage pain) -: Sudden, days(s) (4) Similar Symptoms Previously: No Place: home Radiation: flank (left, mid back and left lateral chest wall) Severity: severe Severity scale (0 -10): 7 Quality: sharp, stabbing, aching Consistency: constant Improves With: none Worsens With: movement, deep breaths/cough Context: fall Associated Symptoms: denies other symptoms, chest pain (left lateral chest wall). denies: confusion, weakness, numbness, difficulty walking, cough, difficulty urinating, diaphoresis, incontinence, constipation, abdominal pain, loss of appetite, malaise, nausea/vomiting, seizure, shortness of breath, syncope, other Treatments Prior to Arrival: NSAIDS - Related Data Home Medications Medication Instructions Recorded Confirmed Last Taken Thyroid,Pork [Nature-Throid] 120 mg PO QDAY 05/04/17 08/16/18 08/20/18 07:30 Triamterene/Hydrochlorothiazid 1 tab PO DAILY 05/04/17 08/20/18 08/19/18 [Triamterene-Hctz 37.5-25 mg Cp] amLODIPine [Norvasc] 1 tab PO DAILY 05/04/17 08/16/18 08/20/18 07:30 Previous Rx's Medication Instructions Recorded Last Taken Type Ketorolac [Toradol] 10 mg PO Q8H PRN #20 tablet 01/08/19 Unknown Rx tiZANidine [Zanaflex 4mg TAB] 4 mg PO Q8H PRN #21 tablet 01/08/19 Unknown Rx Allergies Allergy/AdvReac Type Severity Reaction Status Date / Time SILK TAPE AdvReac Pulls Off Uncoded 08/16/18 16:26 Skin ED Review of Systems ROS: Stated complaint: L FLANK PAIN FROM FALL Other details as noted in HPI Constitutional: denies: chills, fever Eyes: denies: eye pain, eye discharge, vision change ENT: denies: ear pain, throat pain Respiratory: denies: cough, shortness of breath, wheezing Cardiovascular: chest pain (left lateral chest wall). denies: palpitations Endocrine: no symptoms reported. denies: increased hunger, unexplained weight loss Gastrointestinal: denies: abdominal pain, nausea, diarrhea Genitourinary: denies: urgency, dysuria, discharge Musculoskeletal: denies: back pain, joint swelling, arthralgia Skin: denies: rash, lesions Neurological: denies: headache, weakness, paresthesias Psychiatric: denies: anxiety, depression Hematological/Lymphatic: denies: easy bleeding, easy bruising ED Past Medical Hx - Past Medical History Hx Hypertension: Yes Hx Heart Attack/AMI: No Hx Diabetes: Yes (type II, no meds 2006) Hx Liver Disease: No Hx Renal Disease: No Additional medical history: thyroid problems, Arthritis - Surgical History Additional Surgical History: small bowel obstruction with lysisi of adhesions, Hysterectomy, Left knee surgery, gastric sleeve 09/22 - Social History Smoking Status: Never Smoker - Medications Home Medications: Home Medications Medication Instructions Recorded Confirmed Last Taken Type Thyroid,Pork [Nature-Throid] 120 mg PO QDAY 05/04/17 08/16/18 08/20/18 07:30 History Triamterene/Hydrochlorothiazid 1 tab PO DAILY 05/04/17 08/20/18 08/19/18 History [Triamterene-Hctz 37.5-25 mg Cp] amLODIPine [Norvasc] 1 tab PO DAILY 05/04/17 08/16/18 08/20/18 07:30 History Ketorolac [Toradol] 10 mg PO Q8H PRN #20 tablet 01/08/19 Unknown Rx tiZANidine [Zanaflex 4mg TAB] 4 mg PO Q8H PRN #21 tablet 01/08/19 Unknown Rx ED Physical Exam - General Limitations: No Limitations General appearance: alert, in no apparent distress - Head Head exam: Present: atraumatic, normocephalic, normal inspection - Eye Eye exam: Present: normal appearance, PERRL, EOMI. Absent: scleral icterus, conjunctival injection, nystagmus Pupils: Present: normal accommodation - ENT ENT exam: Present: normal exam, normal orophraynx, mucous membranes moist, TM's normal bilaterally, normal external ear exam - Neck Neck exam: Present: normal inspection, full ROM. Absent: tenderness, meningismus, thyromegaly - Respiratory Respiratory exam: Present: normal lung sounds bilaterally, chest wall tenderness (left lateral chest wall tenderness). Absent: respiratory distress, wheezes, rhonchi, accessory muscle use, prolonged expiratory - Cardiovascular Cardiovascular Exam: Present: regular rate, normal rhythm, normal heart sounds. Absent: systolic murmur, diastolic murmur, rubs, gallop - GI/Abdominal GI/Abdominal exam: Present: soft, normal bowel sounds. Absent: tenderness, guarding, rebound, hyperactive bowel sounds, organomegaly - Rectal Rectal exam: Present: deferred - Extremities Exam Extremities exam: Present: normal inspection, normal capillary refill - Back Exam Back exam: Present: normal inspection, full ROM, tenderness (palpable left mid- posterior thoracic paraspinal tenderness), muscle spasm, paraspinal tenderness - Neurological Exam Neurological exam: Present: alert, oriented X3, CN II-XII intact, normal gait, reflexes normal - Psychiatric Psychiatric exam: Present: normal affect, normal mood - Skin Skin exam: Present: warm, dry, intact, normal color. Absent: rash ED Course Vital Signs 01/07/19 21:30 Temperature 98.4 F Pulse Rate 68 Respiratory 18 Rate Blood Pressure 160/88 [Left] O2 Sat by Pulse 97 Oximetry - Reevaluation(s) Reevaluation #1: 01/08/19 00:19 This is a 53-year-old female who presented to the ED with left lateral chest wall and rib cage pain, left mid posterior thoracic pain for 4 days after she slipped and fell landed on left side on the floor with no loss of consciousness. In the ED, patient is alert and oriented 3 but is in pain. Patient was treated for pain in the ED and left rib cage and chest x-rays showed no acute rib fractures, pneumothorax or cardiopulmonary abnormalities. Patient was discharged home on pain medications and muscle relaxants and advised to follow- up with her primary care physician in 5-7 days for reevaluation or return to the ED immediately if symptoms get worse. ED Medical Decision Making - Radiology Data Radiology results: report reviewed, image reviewed Chest x-ray with left ribs: No acute rib fractures, no pneumothorax or any acute cardiopulmonary abnormalities. - Medical Decision Making This is a 53-year-old female who presented to the ED with left lateral chest wall and rib cage pain, left mid posterior thoracic pain for 4 days after she slipped and fell landed on left side on the floor with no loss of consciousness. In the ED, patient is alert and oriented 3 but is in pain. Patient was treated for pain in the ED and left rib cage and chest x-rays showed no acute rib fractures, pneumothorax or cardiopulmonary abnormalities. Patient was discharged home on pain medications and muscle relaxants and advised to follow- up with her primary care physician in 5-7 days for reevaluation or return to the ED immediately if symptoms get worse. - Differential Diagnosis rib fractures; pneumothorax; vertebrae fractures; muscle strain Critical care attestation.: If time is entered above; I have spent that time in minutes in the direct care of this critically ill patient, excluding procedure time. ED Disposition Clinical Impression: Strain of muscle at thorax level Contusion of rib on left side Qualifiers: Encounter type: initial encounter Qualified Code(s): S20.212A - Contusion of left front wall of thorax, initial encounter Contusion of left chest wall Qualifiers: Encounter type: initial encounter Qualified Code(s): S20.212A - Contusion of left front wall of thorax, initial encounter Disposition: DC-01 TO HOME OR SELFCARE Is pt being admited?: No Does the pt Need Aspirin: No Condition: Stable Instructions: Muscle Strain (ED), Contusion in Adults (ED) Additional Instructions: Take medication with food, drink plenty of fluids and follow-up with your primary care physician in 5-7 days for reevaluation. Return to the ED immediately if symptoms get worse. Prescriptions: Ketorolac [Toradol] 10 mg PO Q8H PRN #20 tablet PRN Reason: Pain tiZANidine [Zanaflex 4mg TAB] 4 mg PO Q8H PRN #21 tablet PRN Reason: Muscle Spasm Referrals: MACK,RANJITH LEAH, DO [Primary Care Provider] - 3-5 Days Time of Disposition: 00:22 Print Language: SLOVAK
== END 2019-01-08 00:40 | disposition home or self-care (01) ==
LOC: ED 21:10
DX: S29.011A Strain of muscle and tendon of front wall of thorax, initial encounter (principal); S20.212A Contusion of left front wall of thorax, initial encounter; I10 Essential (primary) hypertension; E11.9 Type 2 diabetes mellitus without complications; M19.90 Unspecified osteoarthritis, unspecified site; Z90.710 Acquired absence of both cervix and uterus; Z98.890 Other specified postprocedural states; Z79.899 Other long term (current) drug therapy; Z91.048 Other nonmedicinal substance allergy status; W10.9XXA Fall (on) (from) unspecified stairs and steps, initial encounter; Y93.89 Activity, other specified; Y92.098 Other place in other non-institutional residence as the place of occurrence of the external cause; Y99.8 Other external cause status
CPT/HCPCS: 71111; 96372; 99283; J1885

== ENCOUNTER 2019-07-23 12:31 | Outpatient (CLI) | payer BC ==
--- NOTE | 2019-07-23 13:21 | XRay Report ---
XR spine lumbosacral 4+V INDICATION / CLINICAL INFORMATION: M54.5 LOW BACK PAIN. COMPARISON: None available. FINDINGS: BONES/JOINT(S): No acute fracture or subluxation. Mild left convex scoliosis with apex at the L4-5 le otoniel. Grade 1 degenerative anterolisthesis of L4 on L5 due to bilateral facet DJD. Mild diffuse spondy losis with small anterior and lateral osteophytes without significant disc height loss. SOFT TISSUES: No significant abnormality. ADDITIONAL FINDINGS: None. Signer Name: Leonidas Ramires MD Signed: 07/23/2019 1:17 PM Workstation Name: [id number]
== END 2019-07-23 12:32 | disposition home or self-care (01) ==
LOC: XRAY 12:31
PROVIDERS: ATTEND Orthopaedic Surgery
DX: M47.816 Spondylosis without myelopathy or radiculopathy, lumbar region (principal); M43.16 Spondylolisthesis, lumbar region; M41.86 Other forms of scoliosis, lumbar region
CPT/HCPCS: 72110

== ENCOUNTER 2019-08-06 07:16 | Outpatient (CLI) | payer BC ==
--- NOTE | 2019-08-06 08:47 | Magnetic Resonance Report ---
MRI LUMBAR SPINE 08/06/2019 INDICATION / CLINICAL INFORMATION: M54.17Radiculopathy, lumbosacral region. COMPARISON: 09/13/2007 FINDINGS: GENERAL OBSERVATIONS: Unenhanced MR images of the lumbar spine were obtained. There is no evidence of acute abnormality. Vertebral body heights are well preserved. There is no juwan dence of epidural fluid collection or mass. [id number] ANALYSIS: L5-S1: Diffuse disc bulging is present, with a broad-based left paracentral disc protrusion. There is impingement on the left lateral recess, and possible compression of the traversing left S1 nerve joshua t. On the prior exam from 2007, a similar finding was present. L4-5: There is a grade 1 anterolisthesis present associated with moderate bilateral facet degenerativ e changes and mild diffuse disc bulging. Mild central canal narrowing is present, with no evidence of lateralization. This has developed since the prior exam. L3-4: Mild diffuse disc bulging, associated with a shallow left lateral disc protrusion. There is charly e moderate narrowing of left neural foramen. Soft tissue planes around the exiting left L3 nerve root are preserved, however. This has developed since the prior exam. L2-3: Unremarkable. L1-2: Unremarkable. BONE MARROW: No significant abnormality. SPINAL CORD/CAUDA EQUINA: Normal. PARASPINAL SOFT TISSUES: No significant abnormality. IMPRESSION: 1. Left paracentral disc protrusion at L5-S1. This has a similar appearance on the prior exam from 09/13/2007. 2. Small left lateral disc protrusion at L3-4. This has developed since the prior exam. 3. grade 1 anterolisthesis at L4-5. This has developed since the prior exam. Signer Name: Braulio Henderson MD Signed: 08/06/2019 8:43 AM Workstation Name: [email or web address] [id number]
== END 2019-08-06 07:17 | disposition home or self-care (01) ==
LOC: MRI 07:16
PROVIDERS: ATTEND Neurological Surgery
DX: M51.27 Other intervertebral disc displacement, lumbosacral region (principal); M48.061 Spinal stenosis, lumbar region without neurogenic claudication
CPT/HCPCS: 72148

== ENCOUNTER 2020-03-05 11:18 | Outpatient (CLI) | payer BC ==
--- NOTE | 2020-03-05 12:50 | Mammography Report ---
DIGITAL SCREENING MAMMOGRAM WITH CAD, 03/05/2020 INDICATION: Routine screening mammography. SCREENING MAMMO TECHNIQUE: Digital bilateral 2D mammography was obtained in the craniocaudal and mediolateral obliq ue projections. This examination was interpreted with the benefit of Computer-Aided Detection analysi s. COMPARISON: 11/08/2018 FINDINGS: Breast Density: There are scattered areas of fibroglandular density. There is no evidence of dominant mass, suspicious calcifications or architectural distortion in eithe r breast. IMPRESSION: Follow up recommendation: Routine yearly BI-RADS Category 1: Negative. A "normal" or negative report should not discourage follow up or biopsy of a clinically significant f inding. A written summary of these findings will be mailed to the patient. The patient will be entered into a mammography reporting system which will generate a reminder letter for the patient's next appointmen t at the appropriate interval. The [employer] recommends yearly mammograms starting at age 40 and continuing as l ninoska as a woman is in good health. Breast MRI is recommended for women with an approximate 20-25% or greater lifetime risk of breast cancer, including women with a strong family history of breast or ova ann cancer or who have been treated for Hodgkin's disease. Signer Name: Tone Dunbar MD Signed: 03/05/2020 12:46 PM Workstation Name: [id number]
== END 2020-03-05 11:19 | disposition home or self-care (01) ==
LOC: MAMMO 11:18
PROVIDERS: ATTEND Internal Medicine
DX: Z12.31 Encounter for screening mammogram for malignant neoplasm of breast (principal)
CPT/HCPCS: 77067

== ENCOUNTER 2021-05-13 08:48 | Outpatient (CLI) | payer BC ==
--- NOTE | 2021-05-13 10:14 | Mammography Report ---
DEXA BONE DENSITY SCAN INDICATION / CLINICAL INFORMATION: OSTEOPOROSIS. 56 years Female COMPARISON: None available. LUMBAR SPINE, L1-L4: - Bone mineral density (BMD) = 1.093 g/cm2. - T-score = 0.4 - Change (%) since most recent prior (if available): None available. LEFT HIP, NECK : - Bone mineral density (BMD) = 0.862 g/cm2. - T-score = 0.1 - Change (%) since most recent prior (if available): None available. IMPRESSION: 1. WHO Classification: Normal bone density. Fracture Risk: Not Increased. 2. 10-Year Fracture Risk (FRAX) = Major Osteoporotic Not reported.% / Hip: Not reported.% FRAX generally not reported for patients with normal or osteoporotic BMD, in wtn-oglnqlp-jdlktpw danuta ents younger than age 50, or in patients undergoing pharmacotherapy BMD Reporting Guidelines (ISCD, 2015) BMD Reporting in Postmenopausal Women and in Men Age 50 and Older - T-scores are preferred. - The WHO densitometric classification is applicable. BMD Reporting in Females Prior to Menopause and in Males Younger Than Age 50 - Z-scores, not T-scores, are preferred. This is particularly important in children. - A Z-score of -2.0 or lower is defined as below the expected range for age, and a Z-score above -2.0 is within the expected range for age. - Osteoporosis cannot be diagnosed in men under age 50 on the basis of BMD alone. - The WHO diagnostic criteria may be applied to women in the menopausal transition. http://www.iscd.org/official-positions/8242-zxer-xmsesaig-positions-adult/ Signer Name: Williams Adams MD Signed: 05/13/2021 10:09 AM Workstation Name: [email or web address]
--- NOTE | 2021-05-13 11:59 | Mammography Report ---
DIGITAL SCREENING MAMMOGRAM WITH CAD, 05/13/2021 CLINICAL INFORMATION / INDICATION: Routine screening mammography. SCREENING MAMMOGRAM TECHNIQUE: Digital bilateral 2D mammography was obtained in the craniocaudal and mediolateral obliqu e projections. This examination was interpreted with the benefit of Computer-Aided Detection analysis . COMPARISON: 03/05/20, 11/08/18 FINDINGS: Breast Density: There are scattered areas of fibroglandular density. No dominant mass, suspicious calcifications, or architectural distortion in either breast. Right breast benign-appearing nodularity is stable. IMPRESSION: No mammographic evidence of malignancy. No significant change. Follow up recommendation: Routine yearly BI-RADS Category 2: BENIGN. A "normal" or negative report should not discourage follow up or biopsy of a clinically significant f inding. A written summary of these findings will be mailed to the patient. The patient will be entered into a mammography reporting system which will generate a reminder letter for the patient's next appointmen t at the appropriate interval. The [employer] recommends yearly mammograms starting at age 40 and continuing as l ninoska as a woman is in good health. Breast MRI is recommended for women with an approximate 20-25% or greater lifetime risk of breast cancer, including women with a strong family history of breast or ova ann cancer or who have been treated for Hodgkin's disease. Signer Name: Melanie Leigh MD Signed: 05/13/2021 11:55 AM Workstation Name: [id number]
== END 2021-05-13 08:49 | disposition home or self-care (01) ==
LOC: MAMMO 08:48
PROVIDERS: ATTEND Internal Medicine
DX: Z12.31 Encounter for screening mammogram for malignant neoplasm of breast (principal); M81.0 Age-related osteoporosis without current pathological fracture
CPT/HCPCS: 77067; 77080